=== PATIENT | female | born 1990 | race Caucasian/White ===

== ENCOUNTER 2022-03-24 10:24 | Emergency (ER) | payer MEDICAID | END 2022-03-24 11:35 | disposition home or self-care (01) | LOC: JD.ED 10:24 | DX: K02.9 Dental caries, unspecified (principal) | CPT/HCPCS: 99281; 99282 ==

== ENCOUNTER 2022-04-27 06:31 | Emergency (ER) | payer MEDICAID ==
[2022-04-27] MEDS ORDERED: HYDROmorphone 1 MG/ML Syringe ONE (06:36)
[2022-04-27] MEDS ORDERED: HYDROmorphone 1 MG/ML Syringe IVPUSH ONE (06:39)
[2022-04-27] MEDS ORDERED: Lidocaine 1% with EPINEPHrine 1:100,000 20 ML MDV INJECT ONE (07:27)
[2022-04-27] MEDS ORDERED: Diphtheria,Pertussis(Acell),Tetanus Vaccine 0.5 ML Syringe IM ONE (07:43)
[2022-04-27] MEDS ORDERED: Cephalexin 500 MG Cap PO ONE (08:06)
[2022-04-27] MEDS ORDERED: ceFAZolin 2 GM in Sodium Chloride 0.9% 50 ML IV ONE ×2 (08:17→08:30)
== END 2022-04-27 09:40 | disposition home or self-care (01) ==
LOC: JD.ED 06:31
DX: S81.011A Laceration without foreign body, right knee, initial encounter (principal); F17.210 Nicotine dependence, cigarettes, uncomplicated; Z79.899 Other long term (current) drug therapy; Z86.16 Personal history of COVID-19; Z23 Encounter for immunization; W18.39XA Other fall on same level, initial encounter
CPT/HCPCS: 12002; 73560; 90471; 90715; 96365; 96375; 99283; J0690; J1170

== ENCOUNTER 2023-02-12 03:28 | Emergency (ER) | payer MEDICAID ==
[2023-02-12] MEDS ORDERED: HYDROmorphone 1 MG/ML Syringe IM ONE (03:45)
[2023-02-12] MEDS ORDERED: Ketorolac 60 MG/2 ML SDV IM ONE (03:45)
== END 2023-02-12 04:11 | disposition home or self-care (01) ==
LOC: JD.ED 03:28
DX: M26.623 Arthralgia of bilateral temporomandibular joint (principal); Z86.16 Personal history of COVID-19
CPT/HCPCS: 96372; 99282; J1170; J1885; 99283

== ENCOUNTER 2024-05-08 22:03 | Emergency (ER) | payer MEDICAID ==
[2024-05-08 23:19] LABS: BASOPHILS PERCENT AUTO 0.3 % (0.0-1.0); EOSINOPHILS ABSOLUTE AUTO 0.2 K/mm3 (0.0-0.4); EOSINOPHILS PERCENT AUTO 1.2 % (0.0-6.0); HEMATOCRIT 41.3 % (37.0-47.0); HEMOGLOBIN 13.2 gm/dl (12.0-16.0); IMMATURE GRAN ABSOLUTE AUTO 0.03 K/mm3 (0.00-0.05); IMMATURE GRAN PERCENT AUTO 0.2 % (0.0-0.4); LYMPHOCYTES ABSOLUTE AUTO 2.4 K/mm3 (1.0-4.8); LYMPHOCYTES PERCENT AUTO 17.8 % (24.0-44.0); MEAN CORPUSCULAR HEMOGLOBIN 27.3 pg (28.0-32.0); MEAN CORPUSCULAR VOLUME 85.5 fl (83.0-99.0); MEAN PLATELET VOLUME 9.4 fl (9.4-12.3); MONOCYTES ABSOLUTE AUTO 0.8 K/mm3 (0.0-0.8); MONOCYTES PERCENT AUTO 6.2 % (0.0-8.0); NEUTROPHILS ABSOLUTE AUTO 10.1 K/mm3 (1.8-7.7); NEUTROPHILS PERCENT AUTO 74.3 % (41.0-71.0); PLATELET COUNT,PLT 353 K/mm3 (150-400); RED BLOOD CELL COUNT 4.83 M/mm3 (4.10-5.30); WHITE BLOOD CELL COUNT,WBC 13.64 K/mm3 (3.9-11.3)
[2024-05-08 23:39] LABS: ALANINE AMINOTRANSFERASE,ALT 27 U/L (14-59); ALBUMIN 3.7 g/dl (3.4-5.0); ALKALINE PHOSPHATASE 117 U/L (46-116); ANION GAP 14.5 (5-15); ASPARTATE AMNIOTRANSFERASE,AST 15 U/L (15-37); BILIRUBIN TOTAL 0.4 mg/dL (0.2-1.0); BLOOD UREA NITROGEN,BUN 15 mg/dL (7-18); BUN/CREATININE RATIO 16.7 (14-18); CALCIUM 8.8 mg/dL (8.5-10.1); CARBON DIOXIDE,CO2 28 mEq/L (21-32); CHLORIDE,CL 101 mEq/L (98-107); CREATININE 0.9 mg/dL (0.55-1.02); ESTIMATED GFR 87 mL/min (>60); GLUCOSE RANDOM 107 mg/dL (70-99); POTASSIUM,K 3.5 mEq/L (3.5-5.1); PROTEIN TOTAL,TP 7.5 g/dl (6.4-8.2); SODIUM,NA 140 mEq/L (136-145)
[2024-05-09] MEDS ORDERED: Lidocaine 1% 10 ML MDV ONE (02:01)
== END 2024-05-09 02:35 | disposition home or self-care (01) ==
LOC: JD.ED 22:03
DX: L03.111 Cellulitis of right axilla (principal); Z86.16 Personal history of COVID-19
CPT/HCPCS: 10060; 36415; 80053; 84703; 85025; 87040; 99283-25

== ENCOUNTER 2024-08-31 03:12 | Emergency (ER) | payer MEDICAID ==
[2024-08-31] MEDS: Azithromycin 200 MG/5 ML Susp 30 ML Bottle PO ONE (04:07)
[2024-08-31] MEDS: prednisoLONE Soln 15 MG/5 ML UD Cup PO ONE (04:08)
[2024-08-31] MEDS: Ketorolac 60 MG/2 ML SDV IM ONE (04:08)
== END 2024-08-31 06:12 | disposition home or self-care (01) ==
LOC: JD.ED 03:12
DX: J02.9 Acute pharyngitis, unspecified (principal); Z86.16 Personal history of COVID-19
CPT/HCPCS: 96372; 99282; A9270; J1885

== ENCOUNTER 2024-10-01 21:09 | Emergency (ER) | payer MEDICAID | END 2024-10-01 21:33 | LOC: JD.ED 21:09 | DX: Z02.89 Encounter for other administrative examinations (principal); F10.10 Alcohol abuse, uncomplicated; Z86.16 Personal history of COVID-19; Y90.9 Presence of alcohol in blood, level not specified | CPT/HCPCS: 99283 ==